=== PATIENT | female | born 1955 | race Caucasian/White ===

== ENCOUNTER 2017-01-31 21:55 | Emergency (ER) | payer BC ==
[2017-01-31] MEDS ORDERED: Sodium Chloride 0.9% 10 ML Syringe FLUSH PRN (22:17)
[2017-01-31] MEDS ORDERED: Sodium Chloride 0.9% 1,000 ML IV SCH (22:30)
[2017-01-31] MEDS ORDERED: Albuterol/Ipratropium 3.0-0.5 MG/3 ML Neb Soln NEB ONE (23:23)
--- NOTE | 2017-02-01 00:06 | EDM.PDOC ---
ED HPI GENERAL MEDICAL PROBLEM - General Chief Complaint: Respiratory Problem Stated Complaint: COUGH Time Seen by Provider: 01/31/17 22:09 Source of Information: Reports: Patient History Limitations: Reports: No Limitations - History of Present Illness INITIAL COMMENTS - FREE TEXT/NARRATIVE: The patient presents with a productive cough for about 2 months. She is coughing up yellow sputum. She has no fever but she does have chills. She has no shortness or breath. She does have some chest wall pain with coughing. She has no nausea or vomiting. She has no abdominal pain, nausea or vomiting. She has a history of lupus and MS. Onset: Gradual Duration: Week(s): (8) Location: Reports: Chest Quality: Reports: Sharp Severity: Mild Improves with: Reports: Rest Worsens with: Reports: Movement (Cough) Associated Symptoms: Reports: Cough. Denies: Confusion, Chest Pain, Fever/ Chills, Nausea/Vomiting, Shortness of Breath Chest Pain Score (Numeric/FACES): 6 - Related Data Allergies Allergy/AdvReac Type Severity Reaction Status Date / Time MIGUEL Inhibitors Allergy Facial Verified 01/31/17 22:06 Swelling Home Meds: Home Meds Estradiol [Estrace] 1 mg PO DAILY 01/31/17 [History] Metoprolol Tartrate 100 mg PO DAILY 01/31/17 [History] Modafinil [Provigil] 100 mg PO DAILY 01/31/17 [History] Promethazine [Phenergan] 25 mg PO Q6H PRN 01/31/17 [History] Ranitidine [Zantac] 150 mg PO BID 01/31/17 [History] Thyroid,Pork [[place] Thyroid] 120 mg PO DAILY 01/31/17 [History] Topiramate 25 mg PO BID 01/31/17 [History] Verapamil HCl [Verapamil ER PM] 300 mg PO DAILY 01/31/17 [History] hydrALAZINE [Apresoline] 25 mg PO BID 01/31/17 [History] Potassium Chloride 20 meq PO DAILY #30 tablet.er 02/01/17 [Rx] Past Medical History Cardiovascular History: Reports: High Cholesterol, Hypertension, Other (See Below) Other Cardiovascular History: regurgitation Gastrointestinal History: Reports: Gastritis, GERD Genitourinary History: Reports: Renal Disease 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: Other OB/BYN History: x 5 Neurological History: Reports: Migraines, Other (See Below) Other Neuro History: MS Psychiatric History: Reports: Anxiety Endocrine/Metabolic History: Reports: Hypothyroidism Immunologic History: Reports: SLE Dermatologic History: Reports: Angiodema - Past Surgical History Female Surgical History: Reports: Hysterectomy Social & Family History - Tobacco Use Smoking Status *Q: Former Smoker Used Tobacco, but Quit: Yes Month Tobacco Last Used: 2013 Second Hand Smoke Exposure: No - Caffeine Use Caffeine Use: Reports: None - Recreational Drug Use Recreational Drug Use: No ED ROS GENERAL - Review of Systems Review Of Systems: See Below Constitutional: Reports: Chills. Denies: Fever HEENT: Reports: No Symptoms Respiratory: Reports: Cough Cardiovascular: Reports: Chest Pain Endocrine: Reports: No Symptoms GI/Abdominal: Reports: No Symptoms : Reports: No Symptoms Musculoskeletal: Reports: No Symptoms Skin: Reports: No Symptoms ED EXAM, GENERAL - Physical Exam Exam: See Below Exam Limited By: No Limitations General Appearance: Alert, No Apparent Distress Ears: Normal External Exam Nose: Normal Inspection Head: Atraumatic, Normocephalic Neck: Normal Inspection Respiratory/Chest: No Respiratory Distress, Lungs Clear, Normal Breath Sounds Cardiovascular: Regular Rate, Rhythm, No Edema, No Murmur GI/Abdominal: Soft, Non-Tender, No Organomegaly, No Mass Back Exam: Normal Inspection Extremities: Normal Inspection Neurological: Alert, Oriented, No Motor/Sensory Deficits Skin Exam: Warm, Dry Course - Vital Signs Last Recorded V/S: Last Vital Signs Temp 96.4 F 01/31/17 22:00 Pulse 84 01/31/17 22:00 Resp 18 01/31/17 22:00 BP 154/116 H 01/31/17 22:00 Pulse Ox 95 01/31/17 23:32 - Orders/Labs/Meds Orders: Active Orders 24 hr Category Date Time Status Cardiac Monitoring [RC] . DIRECTED Care 01/31/17 22:17 Active Oxygen Therapy [RC] PRN Care 01/31/17 22:17 Active Peripheral IV Care [RC] . DIRECTED Care 01/31/17 22:18 Active RT Aerosol Therapy [RC] ASDIRECTED Care 01/31/17 23:23 Active Chest 2V [CR] Stat Exams 01/31/17 22:18 Taken Sodium Chloride 0.9% [Normal Saline] 1,000 ml Med 01/31/17 22:30 Active IV ASDIRECTED Sodium Chloride 0.9% [Saline Flush] Med 01/31/17 22:17 Active 10 ml FLUSH ASDIRECTED PRN Peripheral IV Insertion Adult [OM.PC] Stat Oth 01/31/17 22:17 Ordered Medication Orders Sodium Chloride (Normal Saline) 1,000 mls @ 125 mls/hr IV ASDIRECTED MARLY Last Admin: 01/31/17 22:31 Dose: 125 mls/hr Sodium Chloride (Saline Flush) 10 ml FLUSH ASDIRECTED PRN PRN Reason: Keep Vein Open Last Admin: 01/31/17 22:32 Dose: 10 ml Labs: Laboratory Tests 01/31/17 01/31/17 01/31/17 Range/Units 22:30 22:30 22:43 WBC 11.42 H (3.98-10.04) K/mm3 RBC 5.06 (3.98-5.22) M/mm3 Hgb 14.7 (11.2-15.7) gm/L Hct 44.2 (34.1-44.9) % MCV 87.4 (79.4-94.8) fl MCH 29.1 (25.6-32.2) pg MCHC 33.3 (32.2-35.5) g/dl RDW Std Deviation 42.7 (36.4-46.3) fL Plt Count 322 (182-369) K/mm3 MPV 11.0 (9.4-12.3) fl Neut % (Auto) 56.8 (34.0-71.1) % Lymph % (Auto) 33.9 (19.3-51.7) % [place] % (Auto) 6.8 (4.7-12.5) % Eos % (Auto) 1.5 (0.7-5.8) Baso % (Auto) 0.5 (0.1-1.2) % Neut # (Auto) 6.48 H (1.56-6.13) K/mm3 Lymph # (Auto) 3.87 H (1.18-3.74) K/mm3 [place] # (Auto) 0.78 H (0.24-0.36) K/mm3 Eos # (Auto) 0.17 (0.04-0.36) K/mm3 Baso # (Auto) 0.06 (0.01-0.08) K/mm3 Manual Slide Review Normal smear Sodium 141 (136-145) mEq/L Potassium 2.8 L (3.5-5.1) mEq/L Chloride 101 (98-107) mEq/L Carbon Dioxide 27 (21-32) mEq/L Anion Gap 15.8 H (5-15) BUN 16 (7-18) mg/dL Creatinine 1.1 H (0.55-1.02) mg/dL Est Cr Clr Drug Dosing 44.99 mL/min Estimated GFR (MDRD) 51 (>60) mL/min BUN/Creatinine Ratio 14.5 (14-18) Glucose 109 H (74-106) mg/dL Calcium 9.3 (8.5-10.1) mg/dL Total Bilirubin 0.2 (0.2-1.0) mg/dL AST 16 (15-37) U/L ALT 20 (14-59) U/L Alkaline Phosphatase 68 (46-116) U/L C-Reactive Protein 4.1 H* (<1.0) mg/dL Total Protein 7.4 (6.4-8.2) g/dl Albumin 3.3 L (3.4-5.0) g/dl Globulin 4.1 gm/dL Albumin/Globulin Ratio 0.8 L (1-2) Urine Color Yellow (Yellow) Urine Appearance Clear (Clear) Urine pH 6.5 (5.0-8.0) Ur Specific [place] 1.025 (1.005-1.030) Urine Protein Negative (Negative) Urine Glucose (UA) Negative (Negative) Urine Ketones Negative (Negative) Urine Occult Blood 1+ H (Negative) Urine Nitrite Negative (Negative) Urine Bilirubin Negative (Negative) Urine Urobilinogen 0.2 (0.2-1.0) Ur Leukocyte Esterase Negative (Negative) Urine RBC 5-10 H (0-5) /hpf Urine WBC Not seen (0-5) /hpf Ur Epithelial Cells 5-10 H (0-5) /hpf Urine Bacteria Few (FEW) /hpf Urine Mucus Moderate H (FEW) /hpf Meds: Medications Generic Name Dose Route Start Last Admin Trade Name Freq PRN Reason Stop Dose Admin Sodium Chloride 1,000 mls @ 125 mls/hr 01/31/17 22:30 01/31/17 22:31 Normal Saline IV 125 mls/hr ASDIRECTED MARLY Administration Sodium Chloride 10 ml 01/31/17 22:17 01/31/17 22:32 Saline Flush FLUSH 10 ml ASDIRECTED PRN Administration Keep Vein Open Discontinued Medications Generic Name Dose Route Start Last Admin Trade Name Jimenez PRN Reason Stop Dose Admin Albuterol/Ipratropium 3 ml 01/31/17 23:23 01/31/17 23:31 Duoneb 3.0-0.5 Mg/3 Ml NEB 01/31/17 23:24 3 ml ONETIME ONE Administration - Re-Assessments/Exams Free Text/Narrative Re-Assessment/Exam: 02/01/17 00:06 I ordered an IV NS at 125mL/hr, duoneb, CXR, labs and UA. Her CXR shows no infiltrate. Her WBC was slightly elevated at 11.42. Her K was low at 2.8. Her creatinine was elevated slightly at 1.1. Her CRP was elevated at 4.1. Her UA shows no UTI. The breathing treatment helped. I feel she has bronchitis. I will get her on a z-ann-marie, albuterol, phenergan with codeine and some potassium at home. Departure - Departure Time of Disposition: 00:10 Disposition: Home, Self-Care 01 Condition: Good Clinical Impression: Bronchitis, Hypokalemia - Discharge Information Prescriptions: Potassium Chloride 20 meq PO DAILY #30 tablet.er Referrals: Jordyn Amor, DRY CLEANING MACHINE OPERATOR [Primary Care Provider] - Additional Instructions: Take the zithromax 2 pills on day 1 and 1 pill on day 2 through 5. Take the phenergan 5 to 10mls every 6 hours as needed for cough. Take the albuterol inhaler 2 puffs every 4 to 6 hours as needed for shortness of breath or wheezing. Take the potassium daily. Please return if you are worse. Follow up with your doctor next week. - My Orders Last 24 Hours: My Active Orders 01/31/17 22:17 Cardiac Monitoring [RC] . DIRECTED Oxygen Therapy [RC] PRN Sodium Chloride 0.9% [Saline Flush] 10 ml FLUSH ASDIRECTED PRN Peripheral IV Insertion Adult [OM.PC] Stat 01/31/17 22:18 Peripheral IV Care [RC] . DIRECTED Chest 2V [CR] Stat 01/31/17 22:30 Sodium Chloride 0.9% [Normal Saline] 1,000 ml IV ASDIRECTED 01/31/17 23:23 RT Aerosol Therapy [RC] ASDIRECTED - Assessment/Plan Last 24 Hours: My Active Orders 01/31/17 22:17 Cardiac Monitoring [RC] . DIRECTED Oxygen Therapy [RC] PRN Sodium Chloride 0.9% [Saline Flush] 10 ml FLUSH ASDIRECTED PRN Peripheral IV Insertion Adult [OM.PC] Stat 01/31/17 22:18 Peripheral IV Care [RC] . DIRECTED Chest 2V [CR] Stat 01/31/17 22:30 Sodium Chloride 0.9% [Normal Saline] 1,000 ml IV ASDIRECTED 01/31/17 23:23 RT Aerosol Therapy [RC] ASDIRECTED
[2017-02-01] MEDS ORDERED: Potassium Chloride 20 MEQ Tab.ER PO ONE (00:08)
--- NOTE | 2017-02-02 07:59 | CR ---
Chest: Two views of the chest were obtained. Comparison: No prior chest x-ray. Heart size and mediastinum are normal. Minimal linear density within the lingula most likely due to scar. Lungs otherwise are clear. Disc space narrowing is noted within the mid and upper thoracic spine. Mild scattered endplate osteophytes are seen. Impression: 1. Incidental findings. Nothing acute is appreciated on two-view chest x-ray. Diagnostic code #2
== END 2017-02-01 00:30 | disposition home or self-care (01) ==
LOC: JD.ED 21:55
DX: J40 Bronchitis, not specified as acute or chronic (principal); E87.6 Hypokalemia; E78.00 Pure hypercholesterolemia, unspecified; I10 Essential (primary) hypertension; Z79.899 Other long term (current) drug therapy; Z87.891 Personal history of nicotine dependence
CPT/HCPCS: 36415; 71020; 80053; 81001; 85025; 86140; 87804; 94640; 99284; A9270; J7040; J7050

== ENCOUNTER 2017-03-05 20:27 | Emergency (ER) | payer BC ==
--- NOTE | 2017-03-05 22:01 | EDM.PDOC ---
ED HPI GENERAL MEDICAL PROBLEM - General Chief Complaint: Allergic Reaction Stated Complaint: POSS ALLERGIC REACTION Time Seen by Provider: 03/05/17 21:38 Source of Information: Reports: Patient History Limitations: Reports: No Limitations - History of Present Illness INITIAL COMMENTS - FREE TEXT/NARRATIVE: The patient states that she has been experiencing areas of erythema on her skin in various areas of her body on and off for the past 3 weeks. The areas do not stay read for very long. She denies associated pruritus. She states that she has been short of breath and that she has been wheezing. She has not taken any treatment, yet at this time she has no visible erythema stating that "you just missed it". She showed me a picture of her arm with an erythematous area. The patient has not had any changes in her medications. She was prescribed a Z- Dannie about 3-4 weeks ago for bronchitis. The patient's PCP is Jordyn Amor, whom the patient has not contacted about this issue. Treatments COLLECTIONS REPRESENTATIVE: Reports: Other (see below) Other Treatments COLLECTIONS REPRESENTATIVE: benadryl and promethazine Lower Back Pain Score (Numeric/FACES): 8 - Related Data Allergies Allergy/AdvReac Type Severity Reaction Status Date / Time MIGUEL Inhibitors Allergy Facial Verified 01/31/17 22:06 Swelling Home Meds: Home Meds Estradiol [Estrace] 1 mg PO DAILY 01/31/17 [History] Metoprolol Tartrate 100 mg PO DAILY 01/31/17 [History] Modafinil [Provigil] 100 mg PO DAILY 01/31/17 [History] Promethazine [Phenergan] 25 mg PO Q6H PRN 01/31/17 [History] Ranitidine [Zantac] 150 mg PO BID 01/31/17 [History] Thyroid,Pork [[place] Thyroid] 120 mg PO DAILY 01/31/17 [History] Topiramate 25 mg PO BID 01/31/17 [History] Verapamil HCl [Verapamil ER PM] 300 mg PO DAILY 01/31/17 [History] hydrALAZINE [Apresoline] 25 mg PO BID 01/31/17 [History] Potassium Chloride 20 meq PO DAILY #30 tablet.er 02/01/17 [Rx] Past Medical History Cardiovascular History: Reports: Hypertension, Other (See Below) (Mitral valve regurgitation) Gastrointestinal History: Reports: Gastritis, GERD Genitourinary History: Reports: Chronic Renal Insuffiency 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: Other OB/BYN History: x 5 Neurological History: Reports: Migraines, MS Psychiatric History: Reports: Anxiety Endocrine/Metabolic History: Reports: Hypothyroidism, Obesity/BMI 30+ Immunologic History: Reports: SLE Oncologic (Cancer) History: Reports: Other (See Below) (Multiple myeloma) - Past Surgical History HEENT Surgical History: Reports: Oral Surgery ([address] teeth extraction) Female Surgical History: Reports: Hysterectomy Social & Family History - Tobacco Use Smoking Status *Q: Former Smoker Years of Tobacco use: 40 Packs/Tins Daily: 1 Month Tobacco Last Used: Quit 2013 Second Hand Smoke Exposure: No - Caffeine Use Caffeine Use: Reports: Coffee, Soda, Tea - Alcohol Use Alcohol Use History: Yes Alcohol Use Frequency: Rarely - Recreational Drug Use Recreational Drug Use: No - Living Situation & Occupation Living situation: Reports: , with Spouse Occupation: Disabled ED ROS ALLERGIC REACTION - Review of Systems Review Of Systems: ROS reveals no pertinent complaints other than HPI. ED EXAM GENERAL NO PERIP PULSE - Physical Exam Exam: See Below Exam Limited By: No Limitations General Appearance: Alert, WD/WN, No Apparent Distress Eye Exam: Bilateral Eye: Normal Inspection Ears: Normal External Exam, Hearing Grossly Normal Nose: Normal Inspection, No Blood Throat/Mouth: Normal Inspection, Normal Lips, Normal Voice, No Airway Compromise Head: Atraumatic, Normocephalic Neck: Normal Inspection, Full Range of Motion Respiratory/Chest: No Respiratory Distress, Lungs Clear, Normal Breath Sounds, No Accessory Muscle Use Cardiovascular: Normal Peripheral Pulses, Regular Rate, Rhythm, No Gallop, No JVD, No Murmur, No Rub GI/Abdominal: Normal Bowel Sounds, Soft, Non-Tender, No Organomegaly, No Distention, No Abnormal Bruit, No Mass, Other (Obese) (Female) Exam: Deferred Rectal (Female) Exam: Deferred Back Exam: Normal Inspection, Full Range of Motion, NT Extremities: Normal Inspection, Normal Range of Motion, No Pedal Edema, Normal Capillary Refill Neurological: Alert, Oriented, Normal Cognition, No Motor/Sensory Deficits Psychiatric: Normal Affect Skin Exam: Warm, Dry, Intact, Normal Color, No Rash Course - Vital Signs Last Recorded V/S: Last Vital Signs Temp 36.5 C 03/05/17 20:48 Pulse 79 03/05/17 20:48 Resp 20 03/05/17 20:48 BP 149/86 H 03/05/17 20:48 Pulse Ox 97 03/05/17 20:48 - Re-Assessments/Exams Free Text/Narrative Re-Assessment/Exam: 03/05/17 21:56 The patient reports transient patches of erythema in various parts of her body, on off for the past 3 weeks, although she has not at this time. She showed me a picture of an area on her arm, which does show some erythema, but is not urticaria. While she reports shortness of breath, she is not wheezing. Whatever is occurring, is not an allergic reaction. I am not recommending that she make any changes to any of her medications at this time. I would like her to follow- up with her PCP, Jordyn Amor, who may want to refer her to a Psychologist Research Assistant. Departure - Departure Time of Disposition: 21:57 Disposition: Home, Self-Care 01 Condition: Good Clinical Impression: Erythema - Discharge Information Instructions: Erythema Multiforme Referrals: Jordyn Amor, SATELLITE DISH INSTALLER [Primary Care Provider] - Forms: ED Department Discharge Additional Instructions: You were seen in the emergency room for transient patches of redness in various places on your body, on off for the past 3 weeks. Based on your history and physical examination, what you are experiencing is NOT an allergic reaction. We are not recommending that you make any changes to any of your medications at this time. There is no harm if you take an antihistamine, but do not continue to take one if it does not help. We recommend that you follow-up with your PCP, Jordyn Amor. She may wish to refer you to a Psychologist Research Assistant. If any other problems, please do not hesitate to return to the ER.
== END 2017-03-05 22:13 | disposition home or self-care (01) ==
LOC: SUPCPDRO 20:27 → JD.ED 20:27
DX: T43.222A Poisoning by selective serotonin reuptake inhibitors, intentional self-harm, initial encounter (principal); R07.0 Pain in throat; R11.2 Nausea with vomiting, unspecified; F31.9 Bipolar disorder, unspecified; F17.210 Nicotine dependence, cigarettes, uncomplicated; Z88.7 Allergy status to serum and vaccine; Z91.09 Other allergy status, other than to drugs and biological substances
CPT/HCPCS: 99282; 99283